=== PATIENT | female | born 2000 | race Caucasian/White ===

== ENCOUNTER 2022-01-21 08:48 | Outpatient (CLI) | payer BC | END 2022-01-21 08:49 | disposition home or self-care (01) | LOC: CSHCT 08:48 | PROVIDERS: ATTEND Physician Assistant | DX: R10.9 Unspecified abdominal pain (principal); N94.9 Unspecified condition associated with female genital organs and menstrual cycle | CPT/HCPCS: 74176 ==

== ENCOUNTER 2022-01-28 13:11 | Outpatient (CLI) | payer BC | END 2022-01-28 13:12 | disposition home or self-care (01) | LOC: CSHULT 13:11 | PROVIDERS: ATTEND Physician Assistant | DX: N83.202 Unspecified ovarian cyst, left side (principal); N83.201 Unspecified ovarian cyst, right side | CPT/HCPCS: 76856; 93976 ==

== ENCOUNTER 2023-10-06 13:35 | Outpatient (CLI) | payer BC | END 2023-10-06 13:36 | disposition home or self-care (01) | LOC: CSHULT 13:35 | PROVIDERS: ATTEND Physician Assistant | DX: R10.2 Pelvic and perineal pain (principal); N94.89 Other specified conditions associated with female genital organs and menstrual cycle | CPT/HCPCS: 76856; 93976 ==